=== PATIENT | female | born 1955 | race Caucasian/White ===

== ENCOUNTER 2017-05-24 22:47 | Outpatient (CLI) | payer SELFPAY | END 2017-05-24 22:48 | disposition EMS.NT | LOC: EMS 22:47 | PROVIDERS: ATTEND Surgery | DX: R10.11 Right upper quadrant pain (principal) ==

== ENCOUNTER 2021-09-16 19:33 | Emergency (ER) | payer OTHER ==
[2021-09-16] MEDS ORDERED: KETOROLAC 30 MG/ML VIAL IVP STA (20:32)
[2021-09-16] MEDS ORDERED: SODIUM CHLORIDE 0.9% 1,000 ML IV STA (20:32)
--- NOTE | 2021-09-16 20:49 | ED Physician Documentation ---
History of Present Illness - Stated complaint Stated Complaint: FERRARI - Chief complaint Chief Complaint: Neuro - History obtained from History obtained from: Patient - Additonal information Additional information: Patient with a history of uterine and breast cancer comes emergency department chief complaint of daily headache for at least the last year, much worse today. Patient states that actually, for the past couple of days, the headache is seem worse. Is sitting right up on top of her head and feels like a tightness and pain. She denies any neurologic symptoms to go along with this. No visual changes, weakness, or numbness. She states that she has already taken her normal twice daily oxycodone, as well as Excedrin Migraine and ibuprofen, and this has not helped. She states that normally, she wakes up every morning with a headache, but this usually responds to coffee and Excedrin Migraine. Patient states she has nausea along with a headache and has been dry heaving. She is not sure why she has the headaches. She is not known to have sleep apnea, and her does not comment on her snoring. She does note that her snores heavily and that this does interfere with her sleep at night. Patient denies any fevers or chills. No recent head injury. She was treated surgically and otherwise for both her uterine cancer and her breast cancer and has been in remission since as far she knows. She is not currently on any treatment for either and is not known to have any active cancer. No other complaints at this time Review of Systems Ten Systems: 10 systems reviewed and negative Constitutional: reports: Reviewed and negative Eyes: reports: Reviewed and negative Ears: reports: Reviewed and negative Nose: reports: Reviewed and negative Throat: reports: Reviewed and negative Cardiac: reports: Reviewed and negative Respiratory: reports: Reviewed and negative GI: reports: Nausea, Vomiting (Dry heaving now) : reports: Reviewed and negative Skin: reports: Reviewed and negative Musculoskeletal: reports: Reviewed and negative Neurologic: reports: Headache. denies: Focal weakness, Numbness Psychiatric: reports: Reviewed and negative Endocrine: reports: Reviewed and negative Immunocompromised: reports: Reviewed and negative PD PAST MEDICAL HISTORY - Present Medications Home Medications: Ambulatory Orders Medication Instructions Recorded Confirmed Escitalopram Oxalate 20 mg PO DAILY 09/16/21 09/16/21 Methadone HCl 10 mg PO BID 09/16/21 09/16/21 SUMAtriptan [Imitrex] 25 mg PO BID PRN #30 tablet 09/16/21 buPROPion [Wellbutrin Sr] 100 mg PO DAILY 09/16/21 09/16/21 clonazePAM [Clonazepam] 0.25 mg PO HS 09/16/21 09/16/21 oxyCODONE [Roxicodone] 5 mg PO TID 09/16/21 09/16/21 - Allergies Allergies/Adverse Reactions: Allergies Allergy/AdvReac Type Severity Reaction Status Date / Time amantadine Allergy Rash Verified 09/16/21 19:38 Sulfa (Sulfonamide Allergy Headache Verified 09/16/21 19:38 Antibiotics) PD ED PE NORMAL - Vitals Vital signs reviewed: Yes - General General: Alert and oriented X 3, No acute distress, Well developed/nourished - HEENT HEENT: Atraumatic, PERRL, EOMI, Moist mucous membranes - Neck Neck: Supple, no meningeal sign - Cardiac Cardiac: RRR, No murmur, Strong equal pulses - Respiratory Respiratory: No respiratory distress, Clear bilaterally - Abdomen Abdomen: Soft, Non tender, Non distended - Derm Derm: Normal color, Warm and dry, No rash - Extremities Extremities: No deformity, No edema - Neuro Neuro: Alert and oriented X 3, width stripper 2-12 intact, No motor deficit, Normal speech - Psych Psych: Normal mood, Normal affect Results - Vitals Vitals: Vital Signs - 24 hr 09/16/21 09/16/21 19:38 22:04 Temperature 36.5 C 36.3 C L Heart Rate 72 67 Respiratory 16 18 Rate Blood Pressure 142/85 H 137/77 H O2 Saturation 96 99 Oxygen O2 Source Room air - Rads (name of study) CT head Radiology: Final report received, EMP read indepedently, See rad report (neg) PD MEDICAL DECISION MAKING - ED course Complexity details: reviewed results, re-evaluated patient, considered differential, d/w patient ED course: The patient was treated symptomatically with IV fluids Dilaudid and Toradol, and sent for CT scan of the brain. CT scan was negative. The patient reported feeling better than she had but still had somewhat of a headache. She was concerned about migraine and asked to try Imitrex in the emergency department. I felt this was reasonable enough, so I did order her a dose. The patient requested to try taking it at home as well, as she states that sometimes the ibuprofen Excedrin Migraine do not work, and she does not want to take more of her oxycodone. I have prescribed her the Imitrex, but have advised her that she will need to follow-up with her primary care physician to discuss a good long- term approach to her headaches. We have discussed the usual indications for return. Departure - Departure Disposition: Home, Self Care Clinical Impression: Headache Qualifiers: Headache type: unspecified Headache chronicity pattern: chronic headache Intractability: not intractable Qualified Code(s): R51.9 - Headache, unspecified Condition: Stable Instructions: ED Cephalgia Unspecified Prescriptions: SUMAtriptan [Imitrex] 25 mg PO BID PRN #30 tablet PRN Reason: Headache Comments: Your head CT looks good. There is no evidence of a tumor, bleeding, or any other abnormality. You have been treated with IV fluids and medication for the headache itself. A regimen of ibuprofen and your oxycodone at home would most closely approximate what we gave you today. If you need to take an extra dose of your oxycodone if you develop a bad headache again, this would probably be helpful, along with ibuprofen, as long as it is permissible according to the agreement we you have with your primary doctor about your ongoing pain management at home. Please continue to drink plenty of fluids and follow-up with your doctor as scheduled. Discharge Date/Time: 09/16/21 23:05
--- NOTE | 2021-09-16 21:46 | CT Report ---
PROCEDURE: HEAD WO INDICATIONS: worsening headache, h/o cancer TECHNIQUE: Noncontrast 4.5 mm thick angled axial sections acquired from the foramen magnum to the vertex. For r adiation dose reduction, the following was used: automated exposure control, adjustment of mA and/or kV according to patient size. COMPARISON: None. FINDINGS: Image quality: Excellent. CSF spaces: Basal cisterns are patent. No extra-axial fluid collections. Ventricles are normal in size and shape. Brain: No midline shift. No intracranial masses or hemorrhage. Bear-white matter interface is norm al. Skull and face: Calvarium and visualized facial bones are intact, without suspicious lesions. Sinuses: Visualized sinuses and mastoids are clear. IMPRESSION: No acute intracranial process. Reviewed by: Sandeep Corral MD on 09/16/2021 9:44 PM PST Approved by: Sandeep Corral MD on 09/16/2021 9:44 PM PST Station ID: [id number]
[2021-09-16] MEDS ORDERED: HYDROmorphone 1 MG/ML CARPUJECT IVP STA (21:50)
[2021-09-16 22:05] VITALS: BP 137/77
[2021-09-16] MEDS ORDERED: SUMAtriptan 6 MG/0.5 ML VIAL SUBQ STA (22:57)
== END 2021-09-16 23:05 | disposition home or self-care (01) ==
LOC: ED 19:33
DX: R51.9 Headache, unspecified (principal); R11.2 Nausea with vomiting, unspecified; Z08 Encounter for follow-up examination after completed treatment for malignant neoplasm; Z85.3 Personal history of malignant neoplasm of breast; Z85.42 Personal history of malignant neoplasm of other parts of uterus
CPT/HCPCS: 70450; 96372; 96374; 96375; 99284; J1170

== ENCOUNTER 2023-06-12 18:27 | Emergency (ER) | payer OTHER ==
[2023-06-12 18:40] VITALS: BP 140/90; O2SAT 96
--- NOTE | 2023-06-12 18:41 | ED Physician Documentation ---
History of Present Illness - Stated complaint Stated Complaint: RT LEG CALF PX, SWOLLEN - Chief complaint Chief Complaint: Ext Problem - Additonal information Additional information: Patient presents with mild right lower calf pain and mild swelling over the course of the last few days. She denies any acute injury to her knowledge, no increase in activity recently, no muscle strain, she has not noted any redness. She was concerned for possible DVT that she was sent in for an ultrasound. Patient does not have a history of DVTs but has a history of thrombocytosis. PD PAST MEDICAL HISTORY - Past Medical History Past Medical History: Yes [employer]: Breast cancer Musculoskeletal: Chronic back pain - Past Surgical History Past Surgical History: Yes General: Cholecystectomy Ortho: Knee replacement, Spine surgery /[employer]GER: Hysterectomy, Mastectomy - Present Medications Home Medications: Ambulatory Orders Medication Instructions Recorded Confirmed Escitalopram Oxalate 20 mg PO DAILY 09/16/21 09/16/21 Methadone HCl 10 mg PO BID 09/16/21 09/16/21 SUMAtriptan [Imitrex] 25 mg PO BID PRN #30 tablet 09/16/21 buPROPion [Wellbutrin Sr] 100 mg PO DAILY 09/16/21 09/16/21 clonazePAM [Clonazepam] 0.25 mg PO HS 09/16/21 09/16/21 oxyCODONE [Roxicodone] 5 mg PO TID 09/16/21 09/16/21 - Allergies Allergies/Adverse Reactions: Allergies Allergy/AdvReac Type Severity Reaction Status Date / Time amantadine Allergy Rash Verified 06/12/23 18:31 Sulfa (Sulfonamide Allergy Headache Verified 06/12/23 18:31 Antibiotics) - Social History Does the pt smoke?: No Smoking Status: Never smoker Does the pt drink ETOH?: Yes Does the pt have substance abuse?: No PD ED PE NORMAL - Vitals Vital signs reviewed: Yes - General General: Alert and oriented X 3, No acute distress, Well developed/nourished - HEENT HEENT: Atraumatic, Moist mucous membranes - Derm Derm: Normal color, Warm and dry, No rash, Other (No erythema) - Extremities Extremities: No deformity, Other (Trace medial right ankle swelling with mild tenderness of the calf without tightness or fullness, no cords, no erythema. 2+ pedal pulses) Results - Vitals Vitals: Vital Signs - 24 hr 06/12/23 18:31 Temperature 36.5 C Heart Rate 82 Respiratory 16 Rate Blood Pressure 140/90 H O2 Saturation 96 Oxygen O2 Source Room air - Rads (name of study) No standard instances Relevant Findings:: Prelim report reviewed PD Medical Decision Making - ED course Complexity details: reviewed results, considered differential, d/w patient ED course: 67-year-old female presented with right calf pain and concern for possible DVT. Her physical exam is reassuring, she has trace swelling in the area, mild tenderness no obvious deformity, no injuries or trauma to the area. We obtained ultrasound therefore to rule out DVT and this preliminarily was negative. There are no signs of infection or cellulitis, and I suspect she has a mild muscle strain. I recommended keeping leg elevated whenever possible, utilizing cool compress, Tylenol and ibuprofen. If pain persist beyond the next 1 to 2 weeks, follow-up with PCP for reevaluation. Departure - Departure Disposition: 01 Home, Self Care Clinical Impression: Pain in extremity Qualifiers: Extremity pain location: lower leg Laterality: right Qualified Code(s): M79.661 - Pain in right lower leg Condition: Good Instructions: ED Muscle Aching Comments: You Ultrasound today was negative for blood clot. This may be mild muscle strain or related to the swelling you have had periodically. Please keep elevated whenever possible, use a cool compress, and take tylenol/motrin if needed. Fo llow up w/ PCP if pain persists Forms: PCP List, Activity restrictions
--- NOTE | 2023-06-12 19:34 | Ultrasound Report ---
PROCEDURE: Duplex Ext Veins Right INDICATIONS: calf pain/swelling, eval for dvt TECHNIQUE: Real-time imaging, as well as color and pulse Doppler interrogation, were performed of the lower extr emity deep veins from the inguinal ligament to the popliteal fossa. COMPARISON: None. FINDINGS: The deep veins are normally compressible, and free of intraluminal thrombus. Color and pu lse Doppler demonstrate normal phasic intraluminal flow. There is normal augmentation response to di stal compression maneuver. IMPRESSION: No evidence of DVT in visualized right lower extremity veins. Reviewed by: Klaus Mosley MD on 06/12/2023 7:33 PM PDT Approved by: Klaus Mosley MD on 06/12/2023 7:33 PM PDT Station ID: [id number]
== END 2023-06-12 19:35 | disposition home or self-care (01) ==
LOC: ED 18:27
DX: M79.661 Pain in right lower leg (principal); Z79.899 Other long term (current) drug therapy
CPT/HCPCS: 99283; 99284